=== PATIENT | male | born 1960 | race Hispanic/Latino ===

== ENCOUNTER 2017-09-08 17:37 | Emergency (ER) | payer MEDICAID, OTHER ==
[2017-11-23] MEDS ORDERED: GABA-531 PO (01:10)
[2017-11-23] MEDS ORDERED: TRAM50TA4 PO (01:10)
[2017-11-23] MEDS ORDERED: FURO20TA4 PO (01:10)
[2017-11-23] MEDS ORDERED: PREG300C PO (01:10)
[2017-11-23] MEDS ORDERED: IBUP-2077 PO (01:10)
[2017-11-23] MEDS ORDERED: ACET1TAB25 PO (01:10)
[2017-11-23] MEDS ORDERED: BACL20TA PO (01:10)
[2017-11-23] MEDS ORDERED: OMEP40CA37 PO (01:10)
[2017-11-23] MEDS ORDERED: LISI-613 PO (01:10)
[2017-11-23] MEDS ORDERED: DOCU-272 PO (01:10)
[2017-11-23] MEDS ORDERED: HYDR25TA PO (01:10)
[2017-11-23] MEDS ORDERED: TAMS0.4C32 PO (01:10)
== END 2017-09-09 01:09 | disposition left against medical advice (07) ==
LOC: EDH 17:37
DX: M54.2 Cervicalgia (principal); M54.6 Pain in thoracic spine; Z72.0 Tobacco use
CPT/HCPCS: 72040

== ENCOUNTER 2017-12-06 06:33 | Emergency (ER) | payer MEDICAID ==
[~2017-12-06 06:33] MED LIST: ACET1TAB25 PO; BACL20TA PO; DOCU-272 PO; FURO20TA4 PO; GABA-531 PO; HYDR25TA PO; IBUP-2077 PO; LISI-613 PO; OMEP40CA37 PO; PREG300C PO; TAMS0.4C32 PO; TRAM50TA4 PO
== END 2017-12-06 06:40 | disposition home or self-care (01) ==
LOC: EDH 06:33
DX: J39.3 Upper respiratory tract hypersensitivity reaction, site unspecified (principal); Z72.0 Tobacco use
CPT/HCPCS: 99281

== ENCOUNTER 2018-04-06 04:19 | Inpatient (IN) | payer MEDICARE ==
[~2018-04-06] VITALS: Ht 180.3 cm; Wt 84.2 kg
[2018-04-06 04:57] LABS: BASOPHILS % (AUTO) 0.8 % (0.0-5.0); EOSINOPHILS % (AUTO) 5.5 % (0.0-8.0); HEMATOCRIT 37.8 % (42-54); LYMPHOCYTES % (AUTO) 28.4 % (21.0-51.0); MEAN CORPUSCULAR HEMOGLOBIN 31.1 pg (27.0-33.0); MEAN CORPUSCULAR HGB CONC 33.6 g/dL (32.0-36.0); MEAN CORPUSCULAR VOLUME 92.4 fL (79-99); NEUTROPHILS % (AUTO) 56.3 % (40.0-77.0); NUCLEATED RED BLOOD CELLS 0.1 % (0.0-0.19); PLATELET COUNT (AUTO) 283 K/uL (130-400); RED BLOOD CELL COUNT(AUTO) 4.09 MIL/uL (4.50-6.20); RED CELL DISTRIBUTION WIDTH 14.1 % (11.0-15.5); WHITE BLOOD COUNT (AUTO) 11.7 K/uL (4.8-10.8)
[2018-04-06 05:02] LABS: APPEARANCE,URINE Cloudy (CLEAR); BILIRUBIN,URINE Negative (NEGATIVE); COLOR,URINE Yellow (YELLOW); GLUCOSE, URINE (UA) Negative (NEGATIVE); KETONES,URINE Negative (NEGATIVE); LEUKOCYTE ESTERASE ,URINE Large (NEGATIVE); NITRATE,URINE Positive (NEGATIVE); OCCULT BLOOD,URINE Small (NEGATIVE); PH,URINE 5.5 (5.0-8.0); PROTEIN,URINE Trace (NEGATIVE); UROBILINOGEN,URINE 0.2 mg/dL (0.2-1.0)
[2018-04-06 05:04] LABS: CREATININE 2.8 mg/dL (0.5-1.5); POTASSIUM 3.4 mmol/L (3.5-5.1)
[2018-04-06 05:08] LABS: SALICYLATE 4.9 mg/dL (2.8-20.0)
[2018-04-06 05:09] LABS: AMPHET/METH SCREEN,URINE NEGATIVE (NEGATIVE); BARBITURATE SCREEN, URINE POSITIVE (NEGATIVE); BENZODIAZEPINES SCREEN,URINE NEGATIVE (NEGATIVE); CANNABINOID SCREEN,URINE NEGATIVE (NEGATIVE); COCAINE SCREEN,URINE NEGATIVE (NEGATIVE); OPIATE SCREEN,URINE POSITIVE (NEGATIVE); PHENCYCLIDINE SCREEN,URINE NEGATIVE (NEGATIVE)
[2018-04-06 05:10] LABS: INR 0.93 (0.85-1.15); PARTIAL THROMBOPLASTIN TIME 29.5 SEC (26.3-35.5); PROTHROMBIN TIME 9.8 SEC (9.6-11.6)
[2018-04-06 05:11] LABS: ACETAMINOPHEN < 1 mcg/mL (10-29); ALCOHOL, BLOOD < 3 mg/dL (0-10)
[2018-04-06 05:13] LABS: BACTERIA,URINE Moderate /HPF (None Seen); WBC,URINE TNTC /HPF (0-1)
[2018-04-06 05:14] LABS: SQUAMOUS EPITHELIAL CELL,UR 0-2 /HPF (0-2)
[2018-04-06 05:17] LABS: ALBUMIN 3.9 g/dL (3.5-5.0); BILIRUBIN,TOTAL 0.3 mg/dL (0.2-1.0)
[2018-04-06 05:25] LABS: ABG BASE EXCESS -3.1 mmol/L (-2.0-3.0); ABG HCO3 20.8 mmol/L (21.0-28.0); ABG OXYGEN SATURATION 94.9 % (95.0-99.0); ABG PCO2 34 mmHg (35-48)
[2018-04-06] MEDS ORDERED: CEFTRIAXONE SODIUM 1 GM ONE (06:01)
[2018-04-06] MEDS ORDERED: SODIUM CHLORIDE 0.9% 1000ML 1,000 ML IV ONE (06:01)
[2018-04-06] MEDS ORDERED: SODIUM CHLORIDE 0.9% 1000ML 1,000 ML IV SCH (08:45)
[2018-04-06] MEDS ORDERED: ONDANSETRON HCL 4 MG/2 ML VIAL IV PRN (08:45)
[2018-04-06] MEDS ORDERED: ENOXAPARIN SODIUM 40 MG/0.4 ML SYRINGE SQ SCH (09:00)
[2018-04-06] MEDS ORDERED: PANTOPRAZOLE SODIUM 40 MG TABLET.DR PO SCH (09:05)
[2018-04-06 11:45] VITALS: BP 155/81
[2018-04-06] MEDS: FOLIC ACID/VITAMIN B COMP W-C 1 MG CAPSULE PO SCH (13:46)
[2018-04-06] MEDS ORDERED: LACTULOSE 20 GM/30 ML UDCUP PO ONE (15:15)
[2018-04-06 16:00] VITALS: BP 112/56
[2018-04-06] MEDS: SODIUM CHLORIDE 0.9% 1000ML 1,000 ML IV SCH ×2 (17:34→21:30)
[2018-04-06] MEDS ORDERED: ONDANSETRON HCL MDV 20ML 2 MG/ML VIAL IVP PRN (19:45)
[2018-04-06 20:00] VITALS: BP 116/52
[2018-04-07 00:11] VITALS: BP 120/52
[2018-04-07 04:18] VITALS: BP 130/68
[2018-04-07 05:07] LABS: HEMATOCRIT 34.7 % (42-54); MEAN CORPUSCULAR HEMOGLOBIN 32.1 pg (27.0-33.0); MEAN CORPUSCULAR VOLUME 91.6 fL (79-99); PLATELET COUNT (AUTO) 339 K/uL (130-400); RED CELL DISTRIBUTION WIDTH 14.2 % (11.0-15.5); WHITE BLOOD COUNT (AUTO) 8.3 K/uL (4.8-10.8)
[2018-04-07 05:38] LABS: ALBUMIN 3.3 g/dL (3.5-5.0); BILIRUBIN,TOTAL 0.2 mg/dL (0.2-1.0); CREATININE 1.3 mg/dL (0.5-1.5); PHOSPHORUS 2.6 mg/dL (2.5-4.9); POTASSIUM 4.3 mmol/L (3.5-5.1); THYROID STIMULATING HORMONE 0.53 uIU/mL (0.36-3.74); TOTAL PROTEIN, SERUM 7.4 g/dL (6.0-8.3); URIC ACID 5.9 mg/dL (2.6-7.2)
[2018-04-07] MEDS: SODIUM CHLORIDE 0.9% 1000ML 1,000 ML IV SCH ×3 (05:52→23:47)
[2018-04-07] MEDS: CEFTRIAXONE SODIUM 1 GM IVP SCH (05:53)
[2018-04-07 05:58] LABS: BAND NEUTROPHILS % (MANUAL) 3 % (0-2); EOSINOPHILS % (MANUAL) 9 % (1-6); LYMPHOCYTES % (MANUAL) 28 % (22-44); MAN.DIFF COMMENT-IMPRESSION MANUAL DIFFERENTIAL; MONOCYTES % (MANUAL) 6 % (2-9); REACTIVE LYMPHOCYTES 2 % (0-0); SEGMENTED NEUTROPHILS % 52 % (40-70)
[2018-04-07 05:59] LABS: PLATELET MORPHOLOGY COMMENT ADEQUATE
[2018-04-07 07:00] VITALS: BP 131/63
[2018-04-07] MEDS: FOLIC ACID/VITAMIN B COMP W-C 1 MG CAPSULE PO SCH (08:57)
[2018-04-07] MEDS: TAMSULOSIN HCL 0.4 MG CAP.ER.24H PO SCH (08:57)
[2018-04-07] MEDS ORDERED: CEFTRIAXONE SODIUM 1 GM IVP SCH (09:00)
[2018-04-07 11:00] VITALS: BP 125/97
[2018-04-07 16:00] VITALS: BP 117/71
[2018-04-07 20:00] VITALS: BP 137/75
[2018-04-07] MEDS: DOCUSATE SODIUM 100 MG CAP PO SCH (21:09)
[2018-04-07] MEDS ORDERED: LORAZEPAM 2 MG/ML 1 ML VIAL IVP PRN (23:30)
[2018-04-07] MEDS ORDERED: LORAZEPAM 2 MG/ML 1 ML VIAL ONE (23:36)
[2018-04-08] VITALS: BP 116/62
[2018-04-08 04:00] VITALS: BP 137/62
[2018-04-08 05:04] LABS: MEAN CORPUSCULAR HEMOGLOBIN 31.4 pg (27.0-33.0); MEAN CORPUSCULAR HGB CONC 34.5 g/dL (32.0-36.0); MEAN CORPUSCULAR VOLUME 91.1 fL (79-99); PLATELET COUNT (AUTO) 270 K/uL (130-400); RED BLOOD CELL COUNT(AUTO) 3.73 MIL/uL (4.50-6.20); RED CELL DISTRIBUTION WIDTH 13.8 % (11.0-15.5); WHITE BLOOD COUNT (AUTO) 9.4 K/uL (4.8-10.8)
[2018-04-08 05:08] LABS: CREATININE 0.9 mg/dL (0.5-1.5)
[2018-04-08] MEDS: CEFTRIAXONE SODIUM 1 GM IVP SCH (05:45)
[2018-04-08] MEDS ORDERED: TEMAZEPAM 30 MG CAP PO PRN (07:00)
[2018-04-08 08:00] VITALS: BP 137/70
[2018-04-08] MEDS: DOCUSATE SODIUM 100 MG CAP PO SCH ×2 (09:00→20:51)
[2018-04-08] MEDS: TAMSULOSIN HCL 0.4 MG CAP.ER.24H PO SCH (09:58)
[2018-04-08] MEDS: FOLIC ACID/VITAMIN B COMP W-C 1 MG CAPSULE PO SCH (09:58)
[2018-04-08] MEDS: ACETAMINOPHEN 325 MG TAB PO PRN ×2 (09:58→18:43)
[2018-04-08] MEDS: SODIUM CHLORIDE 0.9% 1000ML 1,000 ML IV SCH ×2 (10:02→21:00)
[2018-04-08 11:00] VITALS: BP 138/83
[2018-04-08 16:00] VITALS: BP 138/69
[2018-04-08] MEDS ORDERED: ZOSYN 3.375GM+NS 50ML 50 ML IV SCH (19:15)
[2018-04-08 19:20] VITALS: BP 141/71
[2018-04-09 00:17] VITALS: BP 123/65
== END 2018-04-09 00:50 | disposition left against medical advice (07) | DRG 682 ==
LOC: EDH 04:19 → OBSVTOIN 06:45 → EDHIP 06:45 → INTOOBSV 06:45 → 3BH 11:34
PROVIDERS: ADMIT Family Medicine; ATTEND Family Medicine
DX: N17.9 Acute kidney failure, unspecified (principal); G93.41 Metabolic encephalopathy; E87.1 Hypo-osmolality and hyponatremia; M62.82 Rhabdomyolysis; M19.90 Unspecified osteoarthritis, unspecified site; N13.6 Pyonephrosis; D64.9 Anemia, unspecified; E86.0 Dehydration; E87.6 Hypokalemia; F17.210 Nicotine dependence, cigarettes, uncomplicated; G89.4 Chronic pain syndrome; I10 Essential (primary) hypertension; N31.9 Neuromuscular dysfunction of bladder, unspecified; N40.0 Benign prostatic hyperplasia without lower urinary tract symptoms; Z16.12 Extended spectrum beta lactamase (ESBL) resistance
CPT/HCPCS: 36415; 36600; 70450; 71045; 76770; 80048; 80053; 80305; 81001; 82550; 82803; 82948; 83735; 83874; 84100; 84443; 84484; 84550; 85025; 85027; 85610; 85730; 87040; 87077; 87088; 87186; 93005; A4218; A4344; G0008; G0480; G0481; J0696; J2060; J2543; J7030; Q2038

== ENCOUNTER 2018-08-23 20:32 | Emergency (ER) | payer OTHER, MEDICARE ==
[~2018-08-23 20:32] MED LIST changes: -LISI-613 PO; -OMEP40CA37 PO
[2018-08-23] MEDS ORDERED: LIDOCAINE 5% TOPICAL PATCH TP ONE (22:57)
== END 2018-08-24 | disposition home or self-care (01) ==
LOC: EDH 20:32
DX: S13.8XXA Sprain of joints and ligaments of other parts of neck, initial encounter (principal); S30.0XXA Contusion of lower back and pelvis, initial encounter; M43.18 Spondylolisthesis, sacral and sacrococcygeal region; Z72.0 Tobacco use; W07.XXXA Fall from chair, initial encounter; Y93.89 Activity, other specified; Y92.89 Other specified places as the place of occurrence of the external cause; Y99.8 Other external cause status
CPT/HCPCS: 72040; 72100

== ENCOUNTER 2018-11-24 00:48 | Emergency (ER) | payer OTHER, MEDICARE ==
[2018-11-24] MEDS ORDERED: KETOROLAC TROMETHAMINE 30MG/ML ONE (01:32)
[2018-11-24] MEDS ORDERED: SODIUM CHLORIDE 0.9% 1000ML 1,000 ML IV ONE (01:32)
[2018-11-24] MEDS ORDERED: ONDANSETRON HCL 4 MG/2 ML VIAL ONE (01:32)
[2018-11-24 01:37] LABS: BASOPHILS % (AUTO) 0.9 % (0.0-5.0); EOSINOPHILS % (AUTO) 2.1 % (0.0-8.0); HEMATOCRIT 38.9 % (42-54); LYMPHOCYTES % (AUTO) 34.3 % (21.0-51.0); MEAN CORPUSCULAR HEMOGLOBIN 32.3 pg (27.0-33.0); MEAN CORPUSCULAR VOLUME 92.2 fL (79-99); MONOCYTES % (AUTO) 10.1 % (3.0-13.0); NEUTROPHILS % (AUTO) 52.6 % (40.0-77.0); PLATELET COUNT (AUTO) 225 K/uL (130-400); RED BLOOD CELL COUNT(AUTO) 4.22 MIL/uL (4.50-6.20); RED CELL DISTRIBUTION WIDTH 13.5 % (11.0-15.5); WHITE BLOOD COUNT (AUTO) 7.8 K/uL (4.8-10.8)
[2018-11-24 01:50] LABS: ALBUMIN 3.9 g/dL (3.5-5.0); BILIRUBIN,TOTAL 0.4 mg/dL (0.2-1.0); CREATININE 0.9 mg/dL (0.5-1.5); TOTAL PROTEIN, SERUM 7.4 g/dL (6.0-8.3)
[2018-11-24 01:54] LABS: POTASSIUM 2.8 mmol/L (3.5-5.1)
[2018-11-24] MEDS ORDERED: POTASSIUM CHLORIDE 20 MEQ ERTAB PO ONE (02:11)
== END 2018-11-24 03:14 | disposition home or self-care (01) ==
LOC: EDH 00:48
DX: G89.29 Other chronic pain (principal); M54.2 Cervicalgia; R20.2 Paresthesia of skin; Z72.0 Tobacco use
CPT/HCPCS: 36415; 80053; 82550; 83735; 85025; 93005; 96374; 96375; 99285; J1885; J2405; J7030

== ENCOUNTER → 2019-08-07 | Outpatient (CLI) | payer MEDICARE | END | disposition home or self-care (01) | LOC: OIH 10:47 | PROVIDERS: ATTEND Internal Medicine | DX: M19.042 Primary osteoarthritis, left hand (principal); M19.041 Primary osteoarthritis, right hand; M25.742 Osteophyte, left hand; M25.741 Osteophyte, right hand | CPT/HCPCS: 73130; 77054 ==